=== PATIENT | female | born 1980 | race Caucasian/White ===

== ENCOUNTER 2024-10-22 09:02 | Emergency (ER) | payer OTHER, SELFPAY ==
[2024-10-22 09:14] VITALS: BP 134/95
[2024-10-22 09:25] VITALS: BP 128/85
[2024-10-22 09:52] LABS: % Basophils 0.3 % (0-2); % Eosinophils 0.3 % (0-6); % Immature Granulocytes 0.3 % (0-0.5); % Lymphocytes 18.2 % (20.5-51.1); % Monocytes 7.1 % (1.7-9.3); % Neutrophils 73.8 % (42.2-75.2); Absolute Lymphocytes 2.1 10^3/uL (1.2-3.4); Absolute Monocytes 0.8 10^3/uL (0.1-0.6); Absolute Neutrophils 8.5 10^3/uL (1.4-6.5); Hematocrit 45.7 % (37.0-47.0); Hemoglobin 15.2 g/dL (12.0-16.0); Mean Corp Hgb Conc. 33.3 g/dL (33.0-37.0); Mean Corpuscular Hgb 26.4 pg (27.0-31.0); Mean Corpuscular Volume 79.3 fL (81.0-99.0); Mean Platelet Volume 9.4 fL (7.4-10.4); Nucleated Red Blood Cells % 0 %; Platelet Count 343 10^3/uL (130-400); Red Blood Cell Count 5.76 10^6/uL (4.20-5.40); Red Cell Dist. Width 13.4 % (11.5-14.5); White Blood Cell Count 11.5 10^3/uL (4.8-10.8)
[2024-10-22 10:00] VITALS: BP 127/88
[2024-10-22 10:05] LABS: ALT (SGPT) 29 U/L (0-35); AST (SGOT) 29 U/L (14-36); Albumin 5.1 g/dl (3.5-5.0); Alkaline Phosphatase 74 U/L (38-126); Blood Urea Nitrogen 15 mg/dl (7-17); Calcium 10.1 mg/dl (8.4-10.2); Carbon Dioxide 24 mmol/L (22-30); Chloride 102 mmol/L (98-107); Glucose 96 mg/dl (70-99); Potassium 4.2 mmol/L (3.5-5.1); Sodium 138 mmol/L (135-145); Total Bilirubin 0.4 mg/dl (0.2-1.3); Total Protein 7.6 g/dl (6.3-8.2); eGFR > 60.00
[2024-10-22] MEDS: TORADOL 15 MG IV (10:05)
[2024-10-22] MEDS: PEPCID 20 MG IV (10:06)
--- NOTE | 2024-10-22 10:10 | ED.GENMED ---
History of Present Illness
General
Chief Complaint: Abdominal Symptoms
Source: patient
Exam Limitations: none
Time Seen by Provider: 10/22/24 09:22
Nursing documentation reviewed up to this point in time: agreed with
History of Present Illness
History of Present Illness:
44 y/o F with h/o GERD, anxiety, elevated HR, htn
here with upper abd pain, epigastric pain since last night around 5 pm
she says she felt lightheaded, nauseated. she couldn't eat dinner because of the pain
it seemed to get significantly worse aorun d9 pm when she got nausea/vomiting as well. it got a little better overnight but she didn't sleep well
pain is worse with lying down
she has not had fever, chills,c ough, radiation of pain to the back, ysncope, balck stool
she did take tums last gnith and gas ex this mornign without relief vut it is a lo ebetter now 03/10
never had this before
has had c section and ovarian cyst/ooprhecomy and tube removal
is on progesterone only pill
she denies h/o recent surgery, dvt/pe, leg swelling
no pleuritic pain and doesn't feel SOB
Past History
Past History
ED Past Medical History: GERD, Psychiatric (depression, anxiety) and Other (migraine, pilonidal cyst, )
Phy Exam
Physical Exam
Physical Exam:
GENERAL: Alert , uncomfortable, nauseated
EYE: pupils equal and reactive
NECK: Supple
ENT: o/p clr, mmm.
CARDIAC: Regular rate and rhythm .
LUNGS: Clear breath sounds bilaterally, no acute respiratory distress, no wheezes/rales/rhonchi
ABDOMEN: Soft, mild epigastric and right upper quadrant tenderness, no guarding or rebound, normal bowel sounds
NEUROLOGICAL: Alert and oriented, no focal neuro deficits
SKIN: Warm and dry, skin intact.
MUSCULOSKELETAL: No edema, well perfused. neg elissa's sign
PSYCH: Normal and appropriate interaction.
Course
Orders/Labs/Results
Orders:
Orders
10/22/24 09:18
ECG [Electrocardiogram (*1)] Urgent
Reason for Study: Abdominal Pain
EKG- Treatment ONCE
10/22/24 09:39
CMP [Comprehensive Metabolic Panel] Urgent
Complete Blood Count/With Diff Urgent
Lipase Urgent
Comment: ADD ON
10/22/24 10:00
Add On- LAB Urgent
Tests Added?: lipase
Famotidine [Pepcid] 20 mg IV NOW STA
Ketorolac [Toradol] 15 mg IV NOW STA
10/22/24 10:10
US Abdomen Complete/Upper Urgent
Comment:
Reason For Exam: RUQ PAIN, VOMIT, LOW GRADE TEMP
10/22/24 10:33
Troponin I Urgent
10/22/24 11:27
CT Abd/Pel (IV only)-DH only Urgent
Comment:
Reason For Exam: upper abd pain, vomiting
10/22/24 12:44
Urinalysis Reflex To Culture Urgent
Date Specimen was Collected: 10/22/24
Time Specimen was Collected: 12:15
10/22/24 14:01
0.9% Sodium Chloride 500 ml [Nss] 500 ml IV BOLUS
Abnormal Lab Results
10/22/24
09:39
WBC 11.5 H 10^3/uL
(4.8-10.8)
RBC 5.76 H 10^6/uL
(4.20-5.40)
MCV 79.3 L fL
(81.0-99.0)
MCH 26.4 L pg
(27.0-31.0)
Absolute Neuts (auto) 8.5 H 10^3/uL
(1.4-6.5)
Absolute Monos (auto) 0.8 H 10^3/uL
(0.1-0.6)
Lymphocytes % 18.2 L %
(20.5-51.1)
Albumin 5.1 H g/dl
(3.5-5.0)
10/22/24 09:39
10/22/24 09:39
Vital Signs
Initial and Last Documented VS:
Initial Vital Signs
Temp Pulse Resp BP Pulse Ox
36.9 C 100 20 134/95 100
10/22/24 09:14 10/22/24 09:14 10/22/24 09:14 10/22/24 09:14 10/22/24 09:14
Last Documented Vital Signs
Temp Pulse Resp BP Pulse Ox
36.9 C 92 20 114/77 98
10/22/24 09:14 10/22/24 12:45 10/22/24 09:14 10/22/24 12:00 10/22/24 12:45
MDM/Problems Addressed
Differential Diagnosis Includes:
gastritis, viral synnddrome, cholelithiasis, pancreaitis, ACS
MDM/Problems Addressed:
44-year-old female with epigastric pain nausea and vomiting that started last night. The pain was pretty significant overnight. It she has gotten a little bit sweaty at times. She had no known fever. Pain does not radiate to her back. She is no
weakness numbness or tingling in her arms or legs, she has no shortness of breath or significant chest pain. Patient just recently started GLP-1 agonist and knows that they can cause some gallbladder issues or pancreatitis so she went to get seen.
On exam she was borderline febrile with a temp of 99, looked nauseated and uncomfortable, had minimal epigastric tenderness and some right upper quadrant tenderness. She was given Zofran and Toradol with moderate improvement of her symptoms. Her
workup was remarkable for a minimal elevation of her white count of 11.5 with a left shift, normal LFTs including lipase, negative troponin, nonischemic EKG, no cholecystitis or cholelithiasis on ultrasound and no CT evidence of pancreatitis.
Patient will be discharged home follow-up with her family doctor. I suspect that she could have a viral syndrome causing her
Vomiting
*Critical Care Note
Total Time (30-74mins, 75-104mins- exclusive of procedures): Not Applicable
ED Attending Note
-
Portions of this chart may have been created with voice recognition software.� Occasional wrong word or��sound alike� substitutions may have occurred due to the inherent limitations of voice recognition software.
Discharge Plan
Departure
Patient Disposition: Home (Routine Discharge)
Date of Disposition: 10/22/24
Time of Disposition: 13:53
Patient with high blood pressure during this ER visit?: No
Condition: Fair
Covid-19: Not Applicable
Discharge Problem:
Abdominal pain
Instructions: Abdominal Pain
Prescriptions:
No Action
doxylamine succinate [Unisom (doxylamine)] 25 MG tablet
25 mg PO
prenat.vits,teresita,vho-wisz-zmwdc [ Vitamin] 1 TAB tablet
1 tab PO
iron, carbonyl [Feosol] 45 MG tablet
45 mg PO
omega-3 fatty acids-fish oil [Fish Oil] 1 EACH capsule
1 ea PO
Referrals:
Latanya Krishnamurthy CRNP [Family Provider] - Follow up in 2-3 days
Activity Restrictions/Additional Instructions:
Cause of your abdominal pain. Your ultrasound did not show any gallstones or gallbladder wall thickening. Your common bile duct was normal. Your pancreas enzyme was also normal and your CAT scan was negative. You may have a virus causing your
abdominal pain and nausea. Try Pepcid twice a day as needed for a week.
Eat a bland diet. Watch your symptoms closely. Return for any worsening conditions like shortness of breath, severe chest pain, vomiting blood, black stool, inability to tolerate liquids or any concerns
Interventions
Interventions:
*Risk Screen - Suicide Last Done: 10/22/24 09:14
*General Assessment Last Done: 10/22/24 09:21
*Neglect/Abuse Screening Last Done: 10/22/24 09:21
ED- Fall Risk Assessment Last Done: 10/22/24 09:21
*ED COVID-19 Vaccine History Last Done: 10/22/24 09:21
*Nursing Disposition Last Done: 10/22/24 15:01
SH-Igcgay-Xdxkusyezu Assessment Last Done: 10/22/24 09:21
Discharge Date and Time
Discharge Date/Time: 10/22/24 15:02
Print Language: BELARUSIAN
[2024-10-22 10:27] LABS: Lipase 145 U/L (23-300)
[2024-10-22 11:15] LABS: Troponin I < 0.012 ng/ml
[2024-10-22 11:51] VITALS: BP 124/71
[2024-10-22 12:00] VITALS: BP 114/77
[2024-10-22 12:54] LABS: Urine Albumin Trace (Neg - Trace); Urine Bilirubin Negative (Negative); Urine Character Clear (Clear); Urine Color Yellow; Urine Glucose Negative (Negative); Urine Ketone Negative (Negative); Urine Leukocyte Negative (Negative); Urine Nitrite Negative (Negative); Urine Occult Blood Negative (Negative); Urine Urobilinogen Negative (Neg - 1+)
[2024-10-22] MEDS: NSS 500 IV (14:03)
== END 2024-10-22 15:02 | disposition home or self-care (01) ==
LOC: EMR 09:02
PROVIDERS: Physician Assistant; EMERGENCY PHYSICIAN Emergency Medicine; FAMILY PHYSICIAN Nurse Practitioner Adult Health
DX: R10.10 Upper abdominal pain, unspecified (principal); R10.13 Epigastric pain; K21.9 Gastro-esophageal reflux disease without esophagitis; I10 Essential (primary) hypertension; Z90.79 Acquired absence of other genital organ(s)
CPT/HCPCS: 99284; 96374; 96375; 74177; 76700; 80053; 81003; 83690; 84484; 85025; 93005; Q9967

== ENCOUNTER 2025-07-31 10:23 | Emergency (ER) | payer OTHER, SELFPAY ==
[2025-07-31 10:26] VITALS: BP 143/91
[2025-07-31 12:11] VITALS: BP 126/78
--- NOTE | 2025-07-31 12:26 | ED.GENMED ---
History of Present Illness
General
Chief Complaint: Musculo-Skeletal Complaint
Source: patient
Exam Limitations: none
Time Seen by Provider: 07/31/25 12:12
Nursing documentation reviewed up to this point in time: agreed with
History of Present Illness
History of Present Illness:
45 yr old female with past medical history of degenerative disc disease presents to the ED for evaluation of left back pain 'scicatica.' Patient has a history of sciatica in the past. She reports over the past 1-1/2 weeks she has had left-sided
buttock/back pain rating to her left thigh was dx with sciatica. She denies any injury. She was seen at [facility] urgent care on Sunday and started on steroids as well as Flexeril without relief. Patient is currently on 30 mg of steroids daily
however has had no relief in fact she feels like she is getting worse. She complains of throbbing deep static and burning pain. She denies any bowel or bladder incontinence denies any weakness. She had physical therapy scheduled today for an
evaluation but have it canceled. She is set with an appointment for [facility] orthopedics in the next 2 weeks.
Past History
Past History
ED Past Medical History: GERD, Psychiatric (depression, anxiety) and Other (migraine, pilonidal cyst, )
Phy Exam
General Physical Exam
General Presentation: no apparent distress
General age: appears stated age
General Skin: warm and dry
General Habitus: normal
General Mental: alert
General Hydration: appears well hydrated
Neurological Exam
Neurological Exam: alert, oriented x3 and other (Intact sensation to bilateral lower extremities negative straight leg raise normal dorsiflexion plantar flexion; negative straight leg raise b/l )
Musculoskeletal Exam
Musculoskeletal Exam: full ROM
Skin Exam
Skin Exam: normal color and warm/dry
Psychiatric Exam
Psychiatric Exam: normal mood/affect
Course
Orders/Labs/Results
Orders:
Orders
07/31/25 12:21
Dexamethasone Pf [Decadron] 10 mg PO NOW STA
HYDROmorphone [Dilaudid] 1 mg IM NOW STA
07/31/25 12:22
Acetaminophen [Tylenol] 1,000 mg PO NOW STA
Vital Signs
Initial and Last Documented VS:
Initial Vital Signs
Temp Pulse Resp BP Pulse Ox
98 F 105 16 143/91 97
07/31/25 10:26 07/31/25 10:26 07/31/25 10:26 07/31/25 10:26 07/31/25 10:26
Last Documented Vital Signs
Temp Pulse Resp BP Pulse Ox
98 F 94 12 122/76 97
07/31/25 10:26 07/31/25 14:00 07/31/25 14:00 07/31/25 14:00 07/31/25 12:30
MDM/Problems Addressed
Differential Diagnosis Includes:
Not limited to sciatica.
MDM/Problems Addressed:
Symptoms are consistent with sciatica. Patient has been on steroids and Flexeril without relief. No neurological deficits. Patient was given Decadron and IM Dilaudid here in the ER feeling improved. Will increase patient's steroids back up to 40
mg and continue with a taper. Will require pain medicine at this time I did discuss with patient to stop taking Flexeril. she is to f/u w/ PT /ortho as scheduled.
*Pulse Oximetry
SaO2: 97
Oxygen Mode of Delivery: Room air
Patient hypoxic: no
*Critical Care Note
Total Time (30-74mins, 75-104mins- exclusive of procedures): Not Applicable
ED Attending Note
-
Portions of this chart may have been created with voice recognition software.� Occasional wrong word or��sound alike� substitutions may have occurred due to the inherent limitations of voice recognition software.
Discharge Plan
Departure
Patient Disposition: Home (Routine Discharge)
Date of Disposition: 07/31/25
Time of Disposition: 14:22
Patient with high blood pressure during this ER visit?: Yes
Condition: Fair
Covid-19: Not Applicable
Discharge Problem:
Sciatica
Instructions: Sciatica - ED (DC)
Prescriptions:
New
prednisone 10 mg Tablet
See Rx Instructions .ROUTE .COMPLEX Qty: 30 0RF
Rx Instructions:
Take By Mouth:
40 mg daily x3 days, 30 mg daily x3 days,
20 mg daily x3 days, 10 mg daily x3 days.
oxycodone 5 mg tablet
5 mg PO Q6H PRN (Reason: Pain) Qty: 10 0RF
No Action
doxylamine succinate [Unisom (doxylamine)] 25 MG tablet
25 mg PO
prenat.vits,teresita,bjt-auji-khukt [ Vitamin] 1 TAB tablet
1 tab PO
iron, carbonyl [Feosol] 45 MG tablet
45 mg PO
omega-3 fatty acids-fish oil [Fish Oil] 1 EACH capsule
1 ea PO
Referrals:
Latanya Krishnamurthy CRNP [Family Provider, General]
Activity Restrictions/Additional Instructions:
As discussed stop Flexeril.
Start new prescription of steroids tomorrow(you were given a dose here in the ER)
For pain you may take Tylenol as needed however a narcotic prescription, oxycodone was sent to your pharmacy. Take only as directed.
No driving or drinking alcohol taking this medication.
This medicine is constipating please use a laxative while taking this medication.
Follow-up with your account resolution specialist in the next several days as well as physical therapy. Return if any worsening of symptoms include increased pain loss of bowel or bladder or weakness of extremities or any further concerns.
Interventions
Interventions:
*Risk Screen - Suicide Last Done: 07/31/25 10:27
*General Assessment Last Done: 07/31/25 11:12
*Neglect/Abuse Screening Last Done: 07/31/25 10:27
*ED- Fall Risk Assessment Last Done: 07/31/25 11:12
*ED COVID-19 Vaccine History Last Done: 07/31/25 11:12
*ED Influenza Vaccine History Last Done: 07/31/25 11:12
ED-Musculoskeletal Assessment Last Done: 07/31/25 11:11
Discharge Date and Time
Print Language: CONGOLESE
[2025-07-31] MEDS: TYLENOL 1000 MG PO (12:37)
[2025-07-31] MEDS: DECADRON 10 MG PO (12:38)
[2025-07-31] MEDS: DILAUDID 1 MG IM (12:38)
[2025-07-31 12:59] VITALS: BP 131/81
[2025-07-31 14:00] VITALS: BP 122/76
== END 2025-07-31 14:36 | disposition home or self-care (01) ==
LOC: EMR 10:23
PROVIDERS: EMERGENCY PHYSICIAN Emergency Medicine; FAMILY PHYSICIAN Nurse Practitioner Adult Health
DX: M54.30 Sciatica, unspecified side (principal); K21.9 Gastro-esophageal reflux disease without esophagitis; F41.8 Other specified anxiety disorders
CPT/HCPCS: 99282; 96372